=== PATIENT | female | born 1970 | race Caucasian/White ===

== ENCOUNTER 2017-12-14 07:00 | Day surgery (SDC) | payer OTHER ==
[~2017-12-14] VITALS: Ht 154.9 cm; Wt 48.1 kg
[2017-12-14] VITALS (8 sets, daily range): BP systolic 92–98; BP diastolic 36–58; PULSE 66–79; TEMP 97.5
[~2017-12-14 07:00] MED LIST: LEVOXYL0.05 MG PO
[2017-12-14] MEDS ORDERED: PERCOCET 325 MG1 TA2 PO (12:35)
[2017-12-14] MEDS ORDERED: ASPIRIN 32325 MG/TAB PO (12:36)
[2017-12-14] MEDS ORDERED: COLACE 100100 MG/CAP PO (12:37)
[2017-12-14] MEDS ORDERED: MOBIC15 MG PO (12:37)
[2017-12-14] MEDS ORDERED: ZOFRAN 4MG T4 MG/TAB PO (12:38)
== END 2017-12-14 12:48 | disposition home or self-care (01) ==
LOC: SDCO 07:00
DX: M71.21 Synovial cyst of popliteal space [Baker], right knee (principal); D53.9 Nutritional anemia, unspecified; Z88.0 Allergy status to penicillin; Z83.3 Family history of diabetes mellitus; Z82.49 Family history of ischemic heart disease and other diseases of the circulatory system
CPT/HCPCS: J0690; J2704; J3010; J7120

== ENCOUNTER → 2017-12-20 | Outpatient (CLI) | payer OTHER ==
[~2017-12-20] MED LIST changes: +ASPIRIN 32325 MG/TAB PO; +COLACE 100100 MG/CAP PO; +MOBIC15 MG PO; +PERCOCET 325 MG1 TA2 PO; +ZOFRAN 4MG T4 MG/TAB PO
== END ==
LOC: COL.VAS 14:15
DX: M79.604 Pain in right leg (principal); R60.0 Localized edema

== ENCOUNTER → 2020-12-12 | Outpatient (CLI) | payer OTHER | LOC: COL.RAD 10:24 | DX: E83.52 Hypercalcemia (principal) | CPT/HCPCS: A9500 ==

== ENCOUNTER 2021-04-14 06:15 | Emergency (ER) | payer OTHER ==
[~2021-04-14] VITALS: Ht 157.5 cm; Wt 44.1 kg
[2021-04-14 06:23] VITALS: BP 96/55; TEMP 97.9
[2021-04-14 07:24] VITALS: PULSE 70
== END 2021-04-14 07:24 | disposition home or self-care (01) ==
LOC: COL.ER 06:15
DX: S01.01XA Laceration without foreign body of scalp, initial encounter (principal); W25.XXXA Contact with sharp glass, initial encounter; Y93.I9 Activity, other involving external motion